=== PATIENT | female | born 1995 | race Caucasian/White ===

== ENCOUNTER 2018-04-13 13:53 | Emergency (ER) | payer OTHER ==
[2018-04-13 14:04] VITALS: BP 114/72; PULSE 88; TEMP 98.1; BMI 36.0
--- NOTE | 2018-04-13 14:04 | PDOC ---
Rapid Medical Evaluation Time Seen by Provider: 04/13/18 13:59 Medical Evaluation: Allergies Allergy/AdvReac Type Severity Reaction Status Date / Time No Known Drug Allergies Allergy Verified 12/17/14 14:13 popcorn AdvReac Mild lips swell Uncoded 12/17/14 14:13 04/13/18 14:02 I have done a brief in-person assessment of this patient. The patient presents with a chief complaint of lower abdominal pain since yesterday. States pain is intermittent with urinary frequency, no pain, blood in urine, fever, chills or radiation of pain Pertinent physical exam findings NAD even and unlabored breathing non tender abdomen I have ordered the following: urine , urinalysis The patient will proceed to the Ed for further evaluation. Dx: abdominal pain
[2018-04-13 14:47] LABS: HCG,QUALITATIVE URINE Positive
[2018-04-13] MEDS ORDERED: SODIUM CHLORIDE 1,000 ML IV STA (15:10)
[2018-04-13] MEDS ORDERED: METOCLOPRAMIDE HCL INJECTION 10 MG/2 ML VIAL IVPUSH ONE (15:10)
[2018-04-13 15:20] LABS: URINE APPEARANCE CLOUDY; URINE BILIRUBIN NEGATIVE (<2.0 mg/dL); URINE COLOR YELLOW; URINE GLUCOSE (UA) NEGATIVE (NEGATIVE); URINE KETONE NEGATIVE (NEGATIVE); URINE LEUK ESTERASE NEGATIVE (NEGATIVE); URINE NITRITE NEGATIVE (NEGATIVE); URINE PROTEIN NEGATIVE (NEGATIVE); URINE UROBILINOGEN NEGATIVE mg/dL (0.2-1.0)
[2018-04-13] MEDS ORDERED: METOCLOPRAMIDE HCL INJECTION 10 MG/2 ML VIAL ONE (15:30)
[2018-04-13 15:31] LABS: BASO % 0.3 % (0-2.0); EOS % 1.3 % (0-4.5); HEMATOCRIT 38.4 % (32.4-45.2); HEMOGLOBIN 12.1 GM/dL (10.7-15.3); LYMPH % 12.3 % (8-40); MCH 25.6 pg (25.7-33.7); MCHC 31.4 g/dl (32.0-36.0); MEAN CELL VOLUME 81.5 fl (80-96); MEAN PLT VOLUME 7.3 fl (7.5-11.1); MONO % 8.7 % (3.8-10.2); NEUT % 77.4 % (42.8-82.8); PLATELET COUNT 277 K/MM3 (134-434); RBC 4.71 M/mm3 (3.60-5.2); RDW 15.7 % (11.6-15.6); WHITE BLOOD COUNT 14.6 K/mm3 (4.0-10.0)
--- NOTE | 2018-04-13 16:05 | PDOC ---
History of Present Illness - General Chief Complaint: Nausea/Vomiting Stated Complaint: NAUSEA/VOMITING Time Seen by Provider: 04/13/18 13:59 History Source: Patient Past History - Past Medical History Allergies/Adverse Reactions: Allergies Allergy/AdvReac Type Severity Reaction Status Date / Time No Known Drug Allergies Allergy Verified 12/17/14 14:13 popcorn AdvReac Mild lips swell Uncoded 12/17/14 14:13 Home Medications: Ambulatory Orders Cephalexin [Keflex] 500 mg PO QID #28 capsule 12/17/14 Asthma: No Cancer: No Cardiac Disorders: No COPD: No Diabetes: No HTN: No Seizures: No Thyroid Disease: No - Immunization History Immunization Up to Date: Yes - Suicide/Smoking/Psychosocial Hx Smoking Status: No Smoking History: Never smoked Have you smoked in the past 12 months: No Number of Cigarettes Smoked Daily: 0 Information on smoking cessation initiated: No Hx Alcohol Use: No Drug/Substance Use Hx: No Hx Substance Use Treatment: No *Physical Exam - Vital Signs Last Vital Signs Temp Pulse Resp BP Pulse Ox 98.1 F 88 20 114/72 99 04/13/18 14:00 04/13/18 14:00 04/13/18 14:00 04/13/18 14:00 04/13/18 14:00 Moderate Sedation - Procedure Monitoring Vital Signs: Procedure Monitoring Vital Signs Temperature 98.1 F 04/13/18 14:00 Pulse Rate 88 04/13/18 14:00 Respiratory Rate 20 04/13/18 14:00 Blood Pressure 114/72 04/13/18 14:00 O2 Sat by Pulse Oximetry (%) 99 04/13/18 14:00 ED Treatment Course - LABORATORY CBC & Chemistry Diagram: 04/13/18 15:26 04/13/18 15:26 - ADDITIONAL ORDERS Additional order review: Laboratory Results 04/13/18 14:21 Urine Color Yellow Urine Appearance Cloudy Urine pH 7.0 Ur Specific [place] 1.014 Urine Protein Negative Urine Glucose (UA) Negative Urine Ketones Negative Urine Blood Negative Urine Nitrite Negative Urine Bilirubin Negative Urine Urobilinogen Negative Ur Leukocyte Esterase Negative Urine HCG, Qual Positive 04/13/18 15:26 RBC 4.71 MCV 81.5 MCHC 31.4 L RDW 15.7 H MPV 7.3 L Neutrophils % 77.4 Lymphocytes % 12.3 D Monocytes % 8.7 Eosinophils % 1.3 D Basophils % 0.3 - RADIOLOGY Radiology Studies Ordered: Category Date Time Status TRANSVAGINAL US PREG [US] Stat Ultrasound 04/13/18 15:09 Ordered - Medications Given in the ED: ED Medications Discontinued Medications Generic Name Dose Route Start Last Admin Trade Name Rita PRN Reason Stop Dose Admin Metoclopramide HCl 10 mg 04/13/18 15:10 04/13/18 15:37 Reglan Injection - IVPUSH 04/13/18 15:11 10 mg ONCE ONE Administration Medical Decision Making - Medical Decision Making 04/13/18 15:40 22-year-old female, no significant history, here with nausea, vomiting, malaise and subjective fever since last night. No diarrhea or abdominal pain. No history of sick contacts or recent travel. See exam ?viral syndrome Well gamal and stable -flu pending 04/13/18 16:09 test +. Patient was not aware of until now. No longer on control. Has history of irregular menses. Last menstrual period was February of last year. No abd pain, vag bleed or dysuria. Will get labs and ultrasound at this time 04/13/18 17:14 US read as approximately 6 week 6 day IUP with heart rate. Labs unremarkable. Beta pending but patient refuses to wait for results. States she will follow up with her OB. Reasons to return to ER discussed with patient *DC/Admit/Observation/Transfer Diagnosis at time of Disposition: Viral syndrome Qualifiers: Weeks of gestation: less than 8 weeks Qualified Code(s): Z3A.01 - Less than 8 weeks gestation of - Discharge Dispostion Disposition: HOME Condition at time of disposition: Good - Referrals - Patient Instructions Printed Discharge Instructions: Managing Symptoms of Additional Instructions: Your ultrasound reveals that you are about 6 weeks . You were given a copy of your labs and her ultrasound report. Please follow-up with your OB Please return to ED as needed - Post Discharge Activity
[2018-04-13 16:21] LABS: ALBUMIN 3.7 g/dl (3.4-5.0); ALK PHOS 64 U/L (45-117); ANION GAP 7 MMOL/L (8-16); BILIRUBIN,TOTAL 0.3 mg/dL (0.2-1); BLOOD UREA NITROGEN 5 mg/dL (7-18); CALCIUM 8.8 mg/dL (8.5-10.1); CHLORIDE 106 mmol/L (98-107); CO2 25 mmol/L (21-32); CREATININE 0.5 mg/dL (0.55-1.3); GLUCOSE,RANDOM 74 mg/dL (74-106); SGOT/AST 17 U/L (15-37); SGPT/ALT 28 U/L (13-61); SODIUM 139 mmol/L (136-145); TOT PROT 6.7 g/dl (6.4-8.2)
== END 2018-04-13 17:36 | disposition home or self-care (01) ==
LOC: JER 13:53
PROC: 3E033GC Introduction of Other Therapeutic Substance into Peripheral Vein, Percutaneous Approach (ICD-10-PCS; principal; 2018-04-13)
PROC: 3E0337Z Introduction of Electrolytic and Water Balance Substance into Peripheral Vein, Percutaneous Approach (ICD-10-PCS; 2018-04-13)
DX: Z3A.01 Less than 8 weeks gestation of pregnancy (principal); B34.9 Viral infection, unspecified
CPT/HCPCS: 36415; 76801-TC; 80053; 81003; 84702; 84703; 85025; 87086; 87804; 99283-25; J7030

== ENCOUNTER 2018-06-01 23:44 | Emergency (ER) | payer OTHER ==
[2018-06-02 00:02] VITALS: BP 124/75; PULSE 103; TEMP 98.7; BMI 33.3
--- NOTE | 2018-06-02 01:14 | PDOC ---
History of Present Illness - General History Source: Patient Exam Limitations: No Limitations - History of Present Illness Initial Comments: 06/02/18 01:26 The patient is a 22 year old 14 weeks female A4, with no significant past medical history, who presents to the emergency department with , 1.5 hours of vaginal bleeding with associated cramping. Patient was seen at her [facility] earlier today prior to the onset on her symptoms with an IUP. She denies recent fevers, chills, headache or dizziness. She denies recent nausea, vomit, diarrhea or constipation. She denies recent dysuria, frequency, urgency or hematuria. She denies recent chest pain or shortness of breath. Allergies: Popcorn. <Fransisco Longo - Last Filed: 06/02/18 01:26> <Sybil Singh - Last Filed: 06/02/18 02:16> - General Chief Complaint: Vaginal Bleeding Stated Complaint: BLEEDING SINCE 4:OO Past History <Fransisco Longo - Last Filed: 06/02/18 01:26> - Past Medical History Asthma: No Cancer: No Cardiac Disorders: No COPD: No Diabetes: No HTN: No Seizures: No Thyroid Disease: No - Reproductive History Is Patient Now?: Yes (#): 6 Para: 1 Therapeutic (s) & number: Yes (4) Spontaneous : 0 - Immunization History Immunization Up to Date: Yes - Suicide/Smoking/Psychosocial Hx Smoking Status: No Smoking History: Unknown if ever smoked Have you smoked in the past 12 months: No Number of Cigarettes Smoked Daily: 0 Hx Alcohol Use: No Drug/Substance Use Hx: No Hx Substance Use Treatment: No <Sybil Singh - Last Filed: 06/02/18 02:16> - Past Medical History Allergies/Adverse Reactions: Allergies Allergy/AdvReac Type Severity Reaction Status Date / Time No Known Drug Allergies Allergy Verified 12/17/14 14:13 popcorn AdvReac Mild lips swell Uncoded 12/17/14 14:13 Home Medications: Ambulatory Orders Nitrofurantoin Monohyd/M-Cryst [Nitrofurantoin [place]-Mcr 100 mg] 100 mg PO Q12H 06/02/18 Review of Systems - Review of Systems Able to Perform ROS?: Yes Comments:: 06/02/18 01:26 CONSTITUTIONAL: Absent: fever, no chills, no fatigue EYES: Absent: visual changes ENT: Absent: ear pain, no sore throat CARDIOVASCULAR: Absent: chest pain, no palpitations RESPIRATORY: Absent: cough, no SOB GI: Absent: abdominal pain, no nausea, no vomiting, no constipation, no diarrhea GENITOURINARY: Present: Vaginal bleeding and cramping. Absent: dysuria, no frequency, no hematuria MUSKULOSKELETAL: Absent: back pain, no arthralgia, no myalgia SKIN: Absent: rash NEURO: Absent: headache All Other Systems: Reviewed and Negative <Fransisco Longo - Last Filed: 06/02/18 01:26> *Physical Exam - Vital Signs Last Vital Signs Temp Pulse Resp BP Pulse Ox 98.7 F 103 H 20 124/75 96 06/02/18 00:00 06/02/18 00:00 06/02/18 00:00 06/02/18 00:00 06/02/18 00:00 - Physical Exam Comments: 06/02/18 01:27 GENERAL: Well-appearing, well-nourished. No apparent distress. HEENT: Normocephalic, atraumatic. PERRL, EOM intact. CARDIOVASCULAR: Normal S1, S2. Regular rate and rhythm. PULMONARY: Clear to auscultation bilaterally. ABDOMEN: Soft, non-distended, non-tender. +PELVIC: Vaginal bleeding. Os closed. EXTREMITIES: Normal ROM in all four extremities. No gross deformities. SKIN: Warm, dry. No rash NEUROLOGICAL: No focal neurological deficits. <Fransisco Longo - Last Filed: 06/02/18 01:26> - Vital Signs Last Vital Signs Temp Pulse Resp BP Pulse Ox 98.7 F 103 H 20 124/75 96 06/02/18 00:00 06/02/18 00:00 06/02/18 00:00 06/02/18 00:00 06/02/18 00:00 <Sybil Singh - Last Filed: 06/02/18 02:16> Moderate Sedation - Procedure Monitoring Vital Signs: Procedure Monitoring Vital Signs Temperature 98.7 F 06/02/18 00:00 Pulse Rate 103 H 06/02/18 00:00 Respiratory Rate 20 06/02/18 00:00 Blood Pressure 124/75 02/26/19 00:00 O2 Sat by Pulse Oximetry (%) 96 06/02/18 00:00 <Fransisco Longo - Last Filed: 06/02/18 01:26> - Procedure Monitoring Vital Signs: Procedure Monitoring Vital Signs Temperature 98.7 F 06/02/18 00:00 Pulse Rate 103 H 06/02/18 00:00 Respiratory Rate 20 06/02/18 00:00 Blood Pressure 124/75 06/02/18 00:00 O2 Sat by Pulse Oximetry (%) 96 06/02/18 00:00 <Sybil Singh - Last Filed: 06/02/18 02:16> Medical Decision Making - Medical Decision Making 06/02/18 02:08 Obstetric ultrasound is a single live intrauterine gestation with measurements corresponding to 14 weeks. heart rate is 150 bpm. Amniotic fluid is normal. Cervix 4.4 cm in length. Normal bilateral ovaries. No acute abnormalities noted. Impression threatened AB Plan follow-up with ST[facility] REMOVER <Sybil Singh - Last Filed: 06/02/18 02:16> *DC/Admit/Observation/Transfer - Attestations Scribe Attestion: 06/02/18 01:28 Documentation prepared by Fransisco Longo, acting as medical accounting clerk for Sybil Singh MD. <Fransisco Longo - Last Filed: 06/02/18 01:26> <Sybil Singh - Last Filed: 06/02/18 02:16> Diagnosis at time of Disposition: Threatened Qualifiers: Weeks of gestation: 14 weeks Qualified Code(s): Z3A.14 - 14 weeks gestation of - Discharge Dispostion Disposition: HOME Condition at time of disposition: Stable - Patient Instructions Printed Discharge Instructions: DI for Threatened Additional Instructions: please follow up with your hand packer
== END 2018-06-02 02:35 | disposition home or self-care (01) ==
LOC: JER 23:44
DX: O26.892 Other specified pregnancy related conditions, second trimester (principal); O20.0 Threatened abortion; Z3A.14 14 weeks gestation of pregnancy
CPT/HCPCS: 76801-TC; 86850; 86900; 86901; 99282-25

== ENCOUNTER 2018-12-05 08:30 | Inpatient (IN) | payer OTHER ==
[2018-12-05 09:40] VITALS: BMI 36.6
[2018-12-05] MEDS ORDERED: OXYTOCIN 30 UNITS in 0.9% NS 30 UNIT/500 ML INFUS.BAG IVPB ONE (09:48)
[2018-12-05 09:49] LABS: BASO % 0.2 % (0-2.0); EOS % 2.4 % (0-4.5); HEMATOCRIT 37.1 % (32.4-45.2); LYMPH % 20.6 % (8-40); MCHC 32.2 g/dl (32.0-36.0); MEAN CELL VOLUME 80.6 fl (80-96); MEAN PLT VOLUME 7.7 fl (7.5-11.1); MONO % 5.5 % (3.8-10.2); NEUT % 71.3 % (42.8-82.8); PLATELET COUNT 255 K/MM3 (134-434); RBC 4.61 M/mm3 (3.60-5.2); RDW 15.2 % (11.6-15.6); WHITE BLOOD COUNT 11.3 K/mm3 (4.0-10.0)
[2018-12-05] MEDS: ELECTROLYTE-148 SOLN 1,000 ML IV SCH ×2 (09:58→13:50)
--- NOTE | 2018-12-05 10:01 | HP ---
Past Medical History - Primary Care Physician PCP:: Cristy Hale - Admission Chief Complaint: 23 yrs , 40.6 weeks iup onset LP since 5.00AM History of Present Illness: PNC at [facility] , 2,Shanice avila. Transferred from to [address] [place] [address] on 08/11/18 at 14 weeks Chart reviewed wt gain 16 lbs panel 05/10/18 : A Pos , Hbsag neg, Hiv nr, Rpr nr, rubella pos, , sickle neg 08/24/18 gc/ct neg , 1 hr gtt 143, rpr nr , Quantiferon neg , cbc h/h 10.8/33.5, plt 243 09/08/18 3 hr GTT 77/180/131/86 -- wnl 11/04/18 36 weeks panel BGS neg, gc/ct neg, hiv neg, cbc : h/h 10.6/33.3, plt 246 SON by MFM done for growth NT Screen & AFP neg dating sono 06/01/18 -14 .1 weeks, edc assigned 11/29/18 06/20/18 :Anatomy sono at 17 weeks normal report of 10/14/18 sono :33.3 week , malachi 14.8, efw 4'12"( 37 %tile) pt states she had sono on 11/19/18 & bed side sono was done last week by nst was done in the clinic for post dates History Source: Patient, Medical Record Limitations to Obtaining History: No Limitations - 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 Weeks Gestation by Dates: 41.1 ...EDC by Dates: 11/24/18 ...EDC by Sono: 11/29/18 Heme/Onc: Yes: Anemia (iron deff anemia) Infectious Disease: No: AIDS, C-Diff, Herpes Zoster, HIV, MRSA, STD's, Tuberculosis, VREF, Other Musculoskeletal: No: Bursitis, Chronic low back pain, Hemiparesis, Hemiplegia, Osteoarthritis, Paraplegia, Other Endocrine: No: Diabetes Mellitus - Past Surgical History Past Surgical History: Yes: None Hx Myomectomy: No Hx Transabdominal Cerclage: No - Smoking History Smoking history: Never smoked Have you smoked in the past 12 months: No Aproximately how many cigarettes per day: 0 - Alcohol/Substance Use Hx Alcohol Use: No History of Substance Use: reports: None Home Medications - Allergies Allergies/Adverse Reactions: Allergies Allergy/AdvReac Type Severity Reaction Status Date / Time No Known Drug Allergies Allergy Verified 12/05/18 09:57 popcorn AdvReac Mild lips swell Uncoded 12/05/18 09:57 - Home Medications Home Medications: Ambulatory Orders Vit No.129/Iron/Folic [ One Daily Tablet] 1 each PO DAILY 11/24 Physical Exam - Maternity Vital Signs: Vital Signs Temperature 97.9 F 12/05/18 09:00 Pulse Rate 74 12/05/18 09:00 Respiratory Rate 20 12/05/18 09:00 Blood Pressure 126/77 12/05/18 09:00 O2 Sat by Pulse Oximetry (%) Selected Entries 12/05/18 09:00 Weight 200 lb Constitutional: Yes: Well Nourished, Moderate Distress, Obese Eyes: Yes: WNL HENT: Yes: WNL, Normocephalic Neck: Yes: WNL Cardiovascular: Yes: WNL, Regular Rate and Rhythm Lungs: Clear to auscultation Breast(s): Yes: Other (not examined) - Abdominal Exam/OB Fundal Height: 36 Number of Fetuses: Single Presentation: Vertex Contractions: Yes Regularity: Irregular (min) Intensity: Moderate Monitor Mode: External Heart Rate (range): 130 Heart Rate Location: Midline Category: I Accelerations: Uniform - Vaginal Exam/OB Vaginal Bleediing: No Speculum Exam: No Dilatation (cm): 2 Effacement (%): 80 Amniotic Membrane Status: Intact Presentation: Vertex/Position (exam at 8.50 AM) Station: -2 - Physical Exam Musculoskeletal: Yes: WNL Extremities: Yes: WNL. No: Calf Tenderness Edema: LLE: 1+, RLE: 1+ Integumentary: Yes: WNL Deep Tendon Reflex Grade: Normal +2 ...Motor Strength: WNL Psychiatric: Yes: WNL, Alert, Oriented - Labs Lab Results: Laboratory Tests 12/05/18 12/05/18 12/05/18 09:35 09:35 09:35 WBC 11.3 H Hgb 12.0 Hct 37.1 Plt Count 255 PT with INR 11.40 INR 0.97 PTT (Actin FS) 29.1 Sodium 139 Potassium 3.9 Chloride 109 H Carbon Dioxide 22 BUN 6.2 L Random Glucose 81 RPR Titer HIV 1&2 Antibody Screen HIV P24 Antigen 12/05/18 12/05/18 09:35 09:35 WBC Hgb Hct Plt Count PT with INR INR PTT (Actin FS) Sodium Potassium Chloride Carbon Dioxide BUN Random Glucose RPR Titer Nonreactive HIV 1&2 Antibody Screen Negative HIV P24 Antigen Negative Laboratory Tests 12/05/18 09:35 Blood Type AB POSITIVE Antibody Screen Negative Problem List - Problems (1) Post term over 40 weeks Code(s): O48.0 - POST-TERM (2) Labor established Code(s): [id number] - Assessment/Plan 23 yrs , 40.6 weeks iup in labor , GBS neg , pt in early labor Plan pt requests for epidural labor analgesia Pitocin augmentaion Trial vaginal delivery
[2018-12-05] MEDS ORDERED: OXYTOCIN 30 UNITS in 0.9% NS 30 UNIT/500 ML INFUS.BAG IVPB SCH (10:15)
[2018-12-05 10:18] LABS: BLOOD UREA NITROGEN 6.2 mg/dL (7-18); CREATININE 0.5 mg/dL (0.55-1.3); POTASSIUM 3.9 mmol/L (3.5-5.1)
[2018-12-05 10:20] LABS: INR 0.97 (0.83-1.09); PROTHROMBIN TIME (PATIENT) 11.4 SEC (9.7-13.0)
[2018-12-05 10:23] LABS: ACTIVATED PTT 29.1 SECONDS (25.2-36.5)
[2018-12-05] MEDS ORDERED: FENTANYL/BUPIVACAINE/NS/PF - PCEA - 50 ML DISP.SYRIN EP ONE ×2 (10:30→14:13)
[2018-12-05] MEDS ORDERED: NALOXONE HCL 0.4 MG/ML VIAL IVPUSH PRN (11:38)
[2018-12-05] MEDS ORDERED: FENTANYL/BUPIVACAINE/NS/PF - PCEA - 50 ML DISP.SYRIN EP SCH (11:45)
--- NOTE | 2018-12-05 13:07 | PN ---
Progress Note, Labor Vaginal Exam #1 Labor Exam Date: 12/05/18 Labor Exam Time: 13:00 Heart Rate (range): 136 Dilatation: 5 Effacement (%): 90 Amniotic Membrane Status: Ruptured Presentation: Vertex/Position Station: -1 Remarks: fhr cat-1 . UC irregular, dysfunctional 2-7 min mild to moderate 9.50 Am SROM clear moderate amount fluid . 10.00 AM Pitocin Augmentation 11.20 AM epidural given Selected Entries 12/05/18 12:45 Pulse Rate 67 Blood Pressure 104/59 L Vaginal Exam #2 Labor Exam Date: 12/05/18 Labor Exam Time: 14:47 Heart Rate (range): 120 Dilatation: 10 Effacement (%): 100 Amniotic Membrane Status: Ruptured Presentation: Vertex/Position Station: +2 Remarks: pushing with UC fhr cat-1 , early decel with uc Selected Entries 12/05/18 12/05/18 14:00 14:15 Temperature 98.3 F Pulse Rate 75 Blood Pressure 125/61
[2018-12-05] MEDS ORDERED: OXYTOCIN 20 UNITS in 0.9% NS 20 UNIT/1,000 ML INFUS.BAG IV ONE ×2 (14:38→16:42)
[2018-12-05] MEDS ORDERED: LIDOCAINE HCL 1% PRESERVATIVE FREE - 30ML VIAL ONE (14:41)
[2018-12-05] MEDS: OXYTOCIN 20 UNITS in 0.9% NS 20 UNIT/1,000 ML INFUS.BAG IV SCH ×2 (15:05→16:45)
[2018-12-05] MEDS ORDERED: BISACODYL 10 MG SUPP.RECT RC PRN (15:18)
[2018-12-05] MEDS ORDERED: BENZOCAINE 28 GM HEMORRHOIDAL OINTMENT TP PRN (15:18)
[2018-12-05] MEDS ORDERED: BENZOCAINE 20% 57 GM BOTTLE TP PRN (15:18)
[2018-12-05] MEDS ORDERED: oxyCODONE HCL 5 MG TABLET PO PRN (15:18)
[2018-12-05] MEDS ORDERED: METHYLERGONOVINE MALEATE 0.2 MG/1 ML AMP IM PRN (15:18)
[2018-12-05] MEDS ORDERED: WITCH HAZEL 50% (TUCKS) 40 PAD/JAR PAD TP PRN (15:18)
--- NOTE | 2018-12-05 15:28 | PN ---
Delivery - Delivery Vaginal Delivery: No Problems, Spontaneous (pt delivered in vx presentation, Pedro position, shoulder delievered by giving exagerated lithotomy position without difficulty. Immediate oral & nasal suction was done .perineum & vagina was intact . placenta delievered without difficulty. cord blood gas & cord blood collected .) Type of Anesthesia: Epidural Episiotomy/Laceration: None EBL (cc): 250 (ponce with 250 ml augustine color urine removed , prior to delivery ) Delivery, Single - Stages of Labor Date 1st Stage Initiatied: 12/05/18 Time 1st Stage Initiated: 05:00 Date 2nd Stage Initiated: 12/05/18 Time 2nd Stage Initiated: 14:47 Date of Delivery: 12/05/18 Time of Delivery: 14:59 Date Placenta Delivered: 12/05/18 Time Placenta Delivered: 15:05 - Condition of Infant Spanish Translator/Physicians Assistant Present: No Infant Gender: Female Position: Left, OA Total Hours ROM (Hrs/Mins): 5hrs, 15 min - 1 Minute Total Score: 8 5 Minutes Total Score: 9 - [place] Feeding Plan Initial Plan: Elected not to breastfeed exclusively throughout hospitalization Remarks - Remarks Remarks: 23 yrrs , 40.6 weeks admitted in labor gbs neg PNC at [address] [place] [address] uneventful intrapartum course uneventful
[2018-12-05 15:36] LABS: ARTERIAL BLD GAS O2 SATURATION 26.1 % (95-98); ARTERIAL BLOOD GAS BASE EXCESS -7.7 meq/l (-2-2); ARTERIAL BLOOD GAS PCO2 63.1 mmHg (35-45)
[2018-12-05 15:39] LABS: VENOUS PC02 43.5 mmHg (38-52); VENOUS PH 7.31 (7.31-7.41)
[2018-12-05 15:40] LABS: ARTERIAL BLOOD GAS PO2 < 49 mmHg (80-100)
[2018-12-05 15:41] LABS: ARTERIAL BLOOD GAS pH 7.17 (7.35-7.45)
[2018-12-05 15:42] LABS: VENOUS PO2 < 49 mmHg (28-48)
[2018-12-05] MEDS: ACETAMINOPHEN 325 MG TABLET (FP) PO PRN ×2 (17:59→22:56)
[2018-12-05] MEDS: IBUPROFEN 600 MG TABLET (FP) PO PRN ×2 (17:59→22:56)
[2018-12-05] MEDS: FERROUS SO4 325 MG TABLET (FP) PO SCH (18:00)
[2018-12-06 07:50] LABS: BASO % 0.3 % (0-2.0); EOS % 1.8 % (0-4.5); HEMATOCRIT 32.9 % (32.4-45.2); HEMOGLOBIN 10.8 GM/dL (10.7-15.3); LYMPH % 22.2 % (8-40); MCH 26.3 pg (25.7-33.7); MCHC 32.9 g/dl (32.0-36.0); MEAN CELL VOLUME 79.9 fl (80-96); MEAN PLT VOLUME 8.1 fl (7.5-11.1); MONO % 6.3 % (3.8-10.2); NEUT % 69.4 % (42.8-82.8); PLATELET COUNT 226 K/MM3 (134-434); RBC 4.12 M/mm3 (3.60-5.2); RDW 15.1 % (11.6-15.6); WHITE BLOOD COUNT 12.7 K/mm3 (4.0-10.0)
[2018-12-06] MEDS: ACETAMINOPHEN 325 MG TABLET (FP) PO PRN ×3 (08:28→21:33)
[2018-12-06] MEDS: FERROUS SO4 325 MG TABLET (FP) PO SCH ×2 (08:29→16:58)
[2018-12-06] MEDS: IBUPROFEN 600 MG TABLET (FP) PO PRN ×3 (08:29→21:34)
[2018-12-06] MEDS: PRENATAL VITAMINS W/ FOLIC ACID TABLET (FP) PO SCH (09:22)
--- NOTE | 2018-12-06 11:35 | PN ---
Post Progress Note - Subjective Subjective: c/o cramps Post Day: 1 Type of Delivery: Vital Signs: Vital Signs Temperature 98 F 12/06/18 10:00 Pulse Rate 85 12/06/18 10:00 Respiratory Rate 20 12/06/18 10:00 Blood Pressure 123/71 12/06/18 10:00 O2 Sat by Pulse Oximetry (%) 100 12/05/18 16:45 Breast Exam: Yes: Soft, Other (breast & bottle feeding ). No: Engorged Uterus: Yes: Fundus Firm, Fundus below umbilicus, Non-tender Lochia, amount: Moderate Extremities: Yes: Calves non-tender Perineum: Yes: Intact Activity: Ambulating - Labs Labs: CBC WBC 12.7 K/mm3 (4.0-10.0) H 12/06/18 07:00 RBC 4.12 M/mm3 (3.60-5.2) 12/06/18 07:00 Hgb 10.8 GM/dL (10.7-15.3) 12/06/18 07:00 Hct 32.9 % (32.4-45.2) 12/06/18 07:00 MCV 79.9 fl (80-96) L 12/06/18 07:00 MCH 26.3 pg (25.7-33.7) 12/06/18 07:00 MCHC 32.9 g/dl (32.0-36.0) 12/06/18 07:00 RDW 15.1 % (11.6-15.6) 12/06/18 07:00 Plt Count 226 K/MM3 (134-434) 12/06/18 07:00 MPV 8.1 fl (7.5-11.1) 12/06/18 07:00 Absolute Neuts (auto) 8.8 K/mm3 (1.5-8.0) H 12/06/18 07:00 Neutrophils % 69.4 % (42.8-82.8) 12/06/18 07:00 Lymphocytes % 22.2 % (8-40) 12/06/18 07:00 Monocytes % 6.3 % (3.8-10.2) 12/06/18 07:00 Eosinophils % 1.8 % (0-4.5) 12/06/18 07:00 Basophils % 0.3 % (0-2.0) 12/06/18 07:00 Nucleated RBC % 0 % (0-0) 12/06/18 07:00 Problem List - Problems (1) Post term over 40 weeks Code(s): O48.0 - POST-TERM (2) Labor established Code(s): LFT6376 - (3) examination following vaginal delivery Code(s): Z39.2 - ENCOUNTER FOR ROUTINE FOLLOW-UP Assessment/Plan stable plan discharge tomorrow.
[2018-12-06] MEDS ORDERED: SENNOSIDES/DOCUSATE COMBO (SENNA PLUS) TABLET (UD) PO PRN (22:00)
[2018-12-07] MEDS: FERROUS SO4 325 MG TABLET (FP) PO SCH (08:32)
[2018-12-07] MEDS: IBUPROFEN 600 MG TABLET (FP) PO PRN (09:10)
[2018-12-07] MEDS: ACETAMINOPHEN 325 MG TABLET (FP) PO PRN (09:10)
[2018-12-07] MEDS: PRENATAL VITAMINS W/ FOLIC ACID TABLET (FP) PO SCH (09:10)
--- NOTE | 2018-12-07 09:10 | DS ---
Physical Exam-MANIFEST/ORDER ORGANIZER PRINT ORDERS Vital Signs: Vital Signs Temperature 97.8 F 12/06/18 22:00 Pulse Rate 73 12/06/18 22:00 Respiratory Rate 18 12/06/18 22:00 Blood Pressure 128/75 12/06/18 22:00 O2 Sat by Pulse Oximetry (%) 100 12/05/18 16:45 Constitutional: Yes: Well Nourished Eyes: Yes: WNL HENT: Yes: WNL, Normocephalic Neck: Yes: WNL Cardiovascular: Yes: WNL Respiratory: Yes: WNL Gastrointestinal: Yes: WNL, Normal Bowel Sounds ...Rectal Exam: Yes: WNL Renal/: Yes: WNL. No: CVA Tenderness - Left, CVA Tenderness - Right External Genitalia: Yes: Normal ....Post : Yes: Uterus firm, Moderate lochia rubra (perineum intact) Breast(s): Yes: WNL Musculoskeletal: Yes: WNL Extremities: Yes: WNL. No: Calf Tenderness Edema: Yes Edema: LLE: Trace, RLE: Trace Integumentary: Yes: WNL Neurological: Yes: WNL, Alert, Oriented ...Motor Strength: WNL Psychiatric: Yes: WNL Labs: CBC, BMP 12/06/18 07:00 12/05/18 09:35 Delivery - Delivery Vaginal Delivery: No Problems, Spontaneous (pt delivered in vx presentation, Pedro position, shoulder delievered by giving exagerated lithotomy position without difficulty. Immediate oral & nasal suction was done .perineum & vagina was intact . placenta delievered without difficulty. cord blood gas & cord blood collected .) Type of Anesthesia: Epidural Episiotomy/Laceration: None EBL (cc): 250 Delivery, Single - Stages of Labor Date 1st Stage Initiatied: 12/05/18 Time 1st Stage Initiated: 05:00 Date 2nd Stage Initiated: 12/05/18 Time 2nd Stage Initiated: 14:47 Date of Delivery: 12/05/18 Time of Delivery: 14:59 Time Placenta Delivered: 15:05 - Condition of Infant Motor Equipment Lieutenant/Sky Line Yarder Present: No Infant Gender: Female Weight: 8 lb 2 oz Position: Left, OA Total Hours ROM (Hrs/Mins): 5hrs, 15 min - 1 Minute Total Score: 8 5 Minutes Total Score: 9 - Feeding Plan Initial Plan: Elected not to breastfeed exclusively throughout hospitalization Remarks - Remarks Remarks: 23 yrrs , 40.6 weeks admitted in labor gbs neg PNC at [address] [place] [address] uneventful intrapartum course uneventful pp course uneventful Discharge Summary Reason For Visit: LABOR Current Active Problems Labor established (Acute) Post term over 40 weeks (Acute) examination following vaginal delivery (Acute) - Instructions Diet, Activity, Other Instructions: Post Instructions DIET: Continue good diet high in protein, calcium, and iron rich foods. Drink at least eight (8) glasses of water daily in addition to other fluids. ct Regular diet MEDICATIONS: Continue vitamins and iron as previously directed. Motrin and Tylenol may be taken for minor discomfort. ACTIVITY: Mild to moderate exercise may be started in two (2) weeks. Take frequent rest periods. Resume normal activity after six (6) week check up. WOUND CARE OF OPERATIVE SITE: Continue use of perineal bottle until vaginal discharge stops. Keep area clean. Shower daily. Keep abdominal wound dry. Report any drainage or redness to physician. Tub baths, tampons and douches are not permitted for [address] Breast feeding & ct Bottle feeding BREAST CARE: (For those that are not ): If engorgement occurs: Wear tight fitting bra. Take Tylenol or Motrin for pain. Apply cold packs (ice in bags to each breast ) FAMILY PLANNING: There are many control alternatives to pursue and they should be discussed at your first office visit. You may resume sexual activity after your six (6) week check up. (Remember, is not a contraceptive) NEXT PHYSICIAN APPOINTMENT: Be certain to call for a four to six( 4-(6) week appointment, unless otherwise directed. Call Clinic or got to Emergency Dept if you have any of the following: Heavy vaginal bleeding Painful urination Leg pain Unusual odor noted to vaginal bleeding High fever Red streaking noted on breast Referrals: Cristy Hale MD [Staff Physician] - Disposition: HOME - Home Medications Comprehensive Discharge Medication List: Ambulatory Orders Vit No.129/Iron/Folic [ One Daily Tablet] 1 each PO DAILY 11/24 Ferrous Sulfate [Feosol] 325 mg PO BIDWM tab 12/06/18 Ibuprofen [Motrin -] 200 mg PO Q4H PRN tablet 12/06/18 Vitamins (Sjr) - 1 tab PO DAILY tablet 12/06/18
[2018-12-07 10:41] VITALS: BP 128/69; PULSE 68; TEMP 98.3
== END 2018-12-07 12:30 | disposition home or self-care (01) | DRG 560 ==
LOC: JDEL 08:30 → JLDR 08:56 → J3W 17:03
PROVIDERS: ADMIT Obstetrics & Gynecology; ATTEND Obstetrics & Gynecology
PROC: 10E0XZZ Delivery of Products of Conception, External Approach (ICD-10-PCS; principal; 2018-12-05)
PROC: 3E033VJ Introduction of Other Hormone into Peripheral Vein, Percutaneous Approach (ICD-10-PCS; 2018-12-05)
PROC: 3E0R3BZ Introduction of Anesthetic Agent into Spinal Canal, Percutaneous Approach (ICD-10-PCS; 2018-12-05)
DX: O48.0 Post-term pregnancy (principal); O76 Abnormality in fetal heart rate and rhythm complicating labor and delivery; O99.02 Anemia complicating childbirth; D64.89 Other specified anemias; Z3A.40 40 weeks gestation of pregnancy; Z37.0 Single live birth; O99.214 Obesity complicating childbirth
CPT/HCPCS: 36415; 36600; 59409; 80048; 82803; 85025; 85610; 85730; 86593; 86850; 86900; 86901; 87389

== ENCOUNTER → 2019-03-21 | Emergency (ER) | payer OTHER ==
[~2019-03-21] MED LIST: FLUORESCEIN NA 1 EA STRIP ONE
[2019-03-21 05:36] VITALS: BMI 32.9
--- NOTE | 2019-03-21 07:32 | PDOC ---
History of Present Illness - General Chief Complaint: Eye Problem Stated Complaint: RIGHT EYE PAIN Time Seen by Provider: 03/21/19 07:18 History Source: Patient Exam Limitations: No Limitations - History of Present Illness Initial Comments: 03/21/19 07:27 23-year-old female presents the ED with complaints of right eye pain since last night. Patient states was at a [employer] and people were throwing confetti in the air. Patient states felt something going to her eye but unsure exactly what it was. Patient states went to the bathroom and did not find anything in her eye but did see confetti on her face. Patient states it was a metallic substance. Patient denies visual changes or retro-orbital pain. Patient does complain of excessive tearing and burning sensation in eye worsened with blinking. Timing/Duration: 4-6 hours Severity: mild Associated Symptoms: reports: denies symptoms Past History - Travel Traveled outside of the country in the last 30 days: No Close contact w/someone who was outside of country & ill: No - Past Medical History Allergies/Adverse Reactions: Allergies Allergy/AdvReac Type Severity Reaction Status Date / Time No Known Drug Allergies Allergy Verified 03/21/19 05:36 popcorn AdvReac Mild lips swell Uncoded 03/21/19 05:36 Home Medications: Ambulatory Orders Ferrous Sulfate [Feosol] 325 mg PO BIDWM tab 12/06/18 Ibuprofen [Motrin -] 200 mg PO Q4H PRN tablet 12/06/18 Asthma: No Cancer: No Cardiac Disorders: No COPD: No Diabetes: No HTN: No Seizures: No Thyroid Disease: No - Reproductive History (#): 6 Para: 1 Therapeutic (s) & number: Yes (4) Spontaneous : 0 - Immunization History Immunization Up to Date: Yes - Psycho Social/Smoking Cessation Hx Smoking Status: No Smoking History: Never smoked Have you smoked in the past 12 months: No Number of Cigarettes Smoked Daily: 0 Information on smoking cessation initiated: No Hx Alcohol Use: No Drug/Substance Use Hx: No Hx Substance Use Treatment: No Patient Lives Alone: No Lives with/in: spouse/SO Review of Systems - Review of Systems Able to Perform ROS?: Yes Constitutional: No: Symptoms Reported HEENTM: Yes: Eye Pain, Tearing. No: Blurred Vision, Recent change in vision Integumentary: No: Symptoms Reported Neurological: No: Headache *Physical Exam - Vital Signs Last Vital Signs Temp Pulse Resp BP Pulse Ox 97.9 F 101 H 20 131/82 96 03/21/19 05:33 03/21/19 05:33 03/21/19 05:33 03/21/19 05:33 03/21/19 05:33 - Physical Exam General Appearance: Yes: Nourished, Appropriately Dressed, Alcohol on Breath HEENT: positive: EOMI, FAUSTINO, Other (mild generalized erythema to rt sclera) Integumentary: positive: Normal Color, Warm, Moist Neurologic: positive: Motor Strength 5/5 (ambulatory) Medical Decision Making - Medical Decision Making 03/21/19 07:33 Chief complaint: Right eye pain after getting something in her eye which he believes was confetti that was thrown around at a [employer] she was out last night. Patient has no other complaints except eye pain and increased tearing. Exam: Patient with mild erythema to right sclera. Plan: Patient ordered for fluorescein and tetracaine drops to assess for corneal abrasion. No foreign body noted no corneal abrasion. Patient will be ordered for erythromycin ointment as a lubricant and prophylactic antibiotics for possible on visualized corneal abrasion. patient also requesting a work note. Patient offered Tylenol Motrin but states does not want anything right now 03/21/19 07:38 Discharge - Discharge Information Problems reviewed: Yes Clinical Impression/Diagnosis: Right eye injury Condition: Good Disposition: HOME - Follow up/Referral Referrals: Socorro Tucker [Primary Care Provider] - - Patient Discharge Instructions Patient Printed Discharge Instructions: DI for Eye Pain Additional Instructions: At this time I did not visualize any foreign body or corneal abrasion. I do recommend do not rub the area for the next 48 hours take Tylenol or Motrin as needed for discomfort, and use the ointment as prescribed. - Post Discharge Activity Work/Back to School Note: Back to Work
[2019-03-21 08:35] VITALS: BP 135/67; PULSE 78; TEMP 98.5
== END | disposition home or self-care (01) ==
LOC: JER 05:30
DX: S05.91XA Unspecified injury of right eye and orbit, initial encounter (principal); X58.XXXA Exposure to other specified factors, initial encounter; Y93.89 Activity, other specified; Y92.89 Other specified places as the place of occurrence of the external cause; Z91.018 Allergy to other foods
CPT/HCPCS: 99282-25

== ENCOUNTER 2021-06-24 18:52 | Emergency (ER) | payer OTHER ==
[2021-06-24 19:24] VITALS: BMI 34.2
[2021-06-24] MEDS ORDERED: SODIUM CHLORIDE 1,000 ML IV STA (19:37)
[2021-06-24] MEDS ORDERED: ONDANSETRON 4 MG/2 ML VIAL IVPUSH ONE (19:37)
[2021-06-24] MEDS ORDERED: ONDANSETRON 4 MG/2 ML VIAL ONE (19:40)
[2021-06-24] MEDS ORDERED: ACETAMINOPHEN INJECTION 100 ML IVPB ONE (19:59)
[2021-06-24] MEDS ORDERED: ACETAMINOPHEN 1000 MG/100 ML BAG IVPB ONE (19:59)
[2021-06-24 21:01] LABS: CALCIUM 8.5 mg/dL (8.5-10.1)
[2021-06-24 21:02] LABS: ALBUMIN 3.8 g/dl (3.4-5.0); BLOOD UREA NITROGEN 10.8 mg/dL (7-18)
[2021-06-24 21:05] LABS: CREATININE 0.7 mg/dL (0.55-1.3)
[2021-06-24 21:06] LABS: BILIRUBIN,TOTAL 0.5 mg/dL (0.2-1); TOT PROT 6.8 g/dl (6.4-8.2)
[2021-06-24 21:11] LABS: BASO % 0.2 % (0-2.0); EOS % 1.1 % (0-4.5); HEMOGLOBIN 13.1 GM/dL (10.7-15.3); LYMPH % 8.4 % (8-40); MCH 27.1 pg (25.7-33.7); MCHC 33.6 g/dl (32.0-36.0); MEAN CELL VOLUME 80.7 fl (80-96); MEAN PLT VOLUME 7.5 fl (7.5-11.1); MONO % 3.4 % (3.8-10.2); NEUT % 86.9 % (42.8-82.8); PLATELET COUNT 272 10^3/uL (134-434); RBC 4.84 M/mm3 (3.60-5.2); RDW 13.9 % (11.6-15.6); WHITE BLOOD COUNT 10.2 K/mm3 (4.0-10.0)
[2021-06-24 21:31] VITALS: BP 130/77; PULSE 100; TEMP 99.1
[2021-06-25 07:38] LABS: HIV INTERPRETATION NEGATIVE (NEGATIVE)
== END 2021-06-24 21:49 | disposition home or self-care (01) ==
LOC: FER 18:52
PROC: 3E0333Z Introduction of Anti-inflammatory into Peripheral Vein, Percutaneous Approach (ICD-10-PCS; principal; 2021-06-24)
PROC: 3E033GC Introduction of Other Therapeutic Substance into Peripheral Vein, Percutaneous Approach (ICD-10-PCS; 2021-06-24)
PROC: 3E0337Z Introduction of Electrolytic and Water Balance Substance into Peripheral Vein, Percutaneous Approach (ICD-10-PCS; 2021-06-24)
DX: K52.9 Noninfective gastroenteritis and colitis, unspecified (principal)
CPT/HCPCS: 36415; 80053; 81025; 85025; 87389; 87491; 87591; 99284-25

== ENCOUNTER 2023-05-16 14:57 | Emergency (ER) | payer OTHER ==
[2023-05-16 15:07] VITALS: BP 118/59; PULSE 93; RESP 18; TEMP 98.4; BMI 36.0
[2023-05-16] MEDS ORDERED: ACETAMINOPHEN INJECTION 100 ML IVPB ONE (16:05)
[2023-05-16] MEDS ORDERED: METOCLOPRAMIDE HCL INJECTION 10 MG/2 ML VIAL ONE (16:05)
[2023-05-16 16:13] LABS: BASO % 0.5 % (0-2.0); EOS % 3.9 % (0-4.5); HEMATOCRIT 37.6 % (32.4-45.2); HEMOGLOBIN 12.4 GM/dL (10.7-15.3); LYMPH % 32.1 % (8-40); MCH 26.7 pg (25.7-33.7); MCHC 32.9 g/dl (32.0-36.0); MEAN PLT VOLUME 7.4 fl (7.5-11.1); MONO % 7.2 % (3.8-10.2); NEUT % 56.3 % (42.8-82.8); PLATELET COUNT 309 10^3/uL (134-434); RBC 4.64 M/mm3 (3.60-5.2); RDW 14.3 % (11.6-15.6); WHITE BLOOD COUNT 9.2 K/mm3 (4.0-10.0)
[2023-05-16] MEDS: ACETAMINOPHEN 1000 MG/100 ML BAG IVPB ONE (16:17)
[2023-05-16] MEDS: LACTATED RINGERS SOLUTION 1000 ML INFUS.BAG IV ONE (16:17)
[2023-05-16] MEDS: METOCLOPRAMIDE HCL INJECTION 10 MG/2 ML VIAL IVPUSH ONE (16:18)
[2023-05-16 16:35] LABS: POTASSIUM 4.2 mmol/L (3.5-5.1)
[2023-05-16 16:37] LABS: CALCIUM 8.8 mg/dL (8.5-10.1)
[2023-05-16 16:38] LABS: ALBUMIN 3.9 g/dl (3.4-5.0)
[2023-05-16 16:41] LABS: CREATININE 0.7 mg/dL (0.55-1.3)
[2023-05-16 16:42] LABS: BILIRUBIN,TOTAL 0.2 mg/dL (0.2-1)
[2023-05-16 16:43] LABS: TOT PROT 6.6 g/dl (6.4-8.2)
[2023-05-16] MEDS ORDERED: PSEUDOEPHEDRINE HCL 30 MG TABLET PO ONE (16:48)
[2023-05-16] MEDS ORDERED: KETOROLAC TROMETHAMINE 30 MG/1 ML VIAL ONE (16:59)
[2023-05-16] MEDS: KETOROLAC TROMETHAMINE 30 MG/1 ML VIAL IVPUSH ONE (17:05)
[2023-05-16] MEDS ORDERED: PSEUDOEPHEDRINE HCL 60 MG TABLET ONE (17:10)
[2023-05-16] MEDS: PSEUDOEPHEDRINE HCL 60 MG TABLET PO ONE (17:44)
== END 2023-05-16 17:53 | disposition home or self-care (01) ==
LOC: JER 14:57
PROC: 3E033NZ Introduction of Analgesics, Hypnotics, Sedatives into Peripheral Vein, Percutaneous Approach (ICD-10-PCS; principal; 2023-05-16)
PROC: 3E0333Z Introduction of Anti-inflammatory into Peripheral Vein, Percutaneous Approach (ICD-10-PCS; 2023-05-16)
PROC: 3E033GC Introduction of Other Therapeutic Substance into Peripheral Vein, Percutaneous Approach (ICD-10-PCS; 2023-05-16)
PROC: 3E033GC Introduction of Other Therapeutic Substance into Peripheral Vein, Percutaneous Approach (ICD-10-PCS; 2023-05-16)
DX: R51.9 Headache, unspecified (principal); J32.9 Chronic sinusitis, unspecified; M25.572 Pain in left ankle and joints of left foot; R07.89 Other chest pain
CPT/HCPCS: 36415; 71046-TC-FY; 80053; 84484; 84703; 85025; 93005; 93010; 96374; 96375; 99285-25; J0131

== ENCOUNTER 2023-07-29 23:12 | Emergency (ER) | payer OTHER ==
[2023-07-29 23:30] VITALS: BP 121/66; PULSE 84; RESP 18; TEMP 97.5; BMI 36.0
[2023-07-30] MEDS ORDERED: ACETAMINOPHEN 325 MG TABLET (FP) ONE (01:40)
[2023-07-30] MEDS: ACETAMINOPHEN 500 MG TABLET (FP) PO ONE (01:44)
== END 2023-07-30 03:01 | disposition home or self-care (01) ==
LOC: JER 23:12
DX: M25.472 Effusion, left ankle (principal); M25.572 Pain in left ankle and joints of left foot
CPT/HCPCS: 93971-TC; 99284-25

== ENCOUNTER 2024-12-11 23:08 | Emergency (ER) | payer OTHER ==
[2024-12-11 23:13] VITALS: BMI 28.5
[2024-12-11 23:56] VITALS: BP 122/68; PULSE 69; RESP 18; TEMP 98.2
[2024-12-12 00:48] LABS: ABSOLUTE IMMATURE GRANULOCYTES 0.03 x10^3/uL (0.0-0.031); BASOPHILS # 0.02 x10^3/uL (0.01-0.08); EOSINOPHIL % 1.2 % (0.7-5.8); EOSINOPHILS # 0.13 x10^3/uL (0.04-0.36); MCHC 33.0 g/dl (32.2-35.5); MEAN CELL VOLUME 84.9 fl (79.4-94.8); MEAN PLT VOLUME 9.1 fl (9.4-12.3); MONOCYTE # 0.57 x10^3/uL (0.24-0.86); MONOCYTE % 5.5 % (4.7-12.5); RDW 13.0 % (12.1-16.5)
[2024-12-12 00:56] LABS: INR 1.06 (0.83-1.09); PROTHROMBIN TIME (PATIENT) 11.5 SEC (9.7-13.0)
[2024-12-12 00:58] LABS: ACTIVATED PTT 29.8 SECONDS (25.2-36.5)
[2024-12-12 01:10] LABS: GLUCOSE,RANDOM 93.0 mg/dL (74-106)
[2024-12-12 01:11] LABS: TOT PROT 6.0 g/dl (6.4-8.2)
[2024-12-12 01:12] LABS: CO2 17.0 mmol/L (21-32)
[2024-12-12 01:13] LABS: ALK PHOS 41.0 U/L (40-150)
[2024-12-12 01:16] LABS: CREATININE 0.62 mg/dL (0.55-1.3); SGOT/AST 14.0 U/L (5-34); SGPT/ALT 9.0 U/L (0-55)
== END 2024-12-12 01:58 | disposition home or self-care (01) ==
LOC: JER 23:08
DX: O20.0 Threatened abortion (principal); Z3A.12 12 weeks gestation of pregnancy
CPT/HCPCS: 36415; 76817-TC; 80053; 84702; 85025; 85610; 85730; 86850; 86900; 86901; 99284-25